=== PATIENT | male | born 1985 | race Caucasian/White ===

== ENCOUNTER 2024-01-20 22:29 | Emergency (ER) | payer SELFPAY ==
[2024-01-20 22:31] VITALS: BP 137/73
[2024-01-20 22:34] VITALS: BP 137/73; BMI 25.7
[2024-01-20 22:38] LABS: Glucose - Point of Care 147 mg/dl (70-99)
[2024-01-20] MEDS: ZOFRAN 4 MG IV (22:43)
--- NOTE | 2024-01-20 22:52 | ED.GENMED ---
History of Present Illness
<ROBERTO Bains - Last Filed: 01/21/24 04:18>
General
Chief Complaint: Abdominal Symptoms
Source: patient and significant other
Exam Limitations: altered mental status
Time Seen by Provider: 01/20/24 22:30
Nursing documentation reviewed up to this point in time: agreed with
History of Present Illness
History of Present Illness:
Pt is a 38 y/o M who presents via EMS and is in and out of consciousness. History is obtained from pt and girlfriend. The pt presents with RUQ pain, nausea, and vomiting x2 hours. His girlfriend states that the pt was doing well prior to dinner and
had a sudden onset of symptoms after eating Chik[place]ariela[place]a and a 'few' beers for dinner at 2130. The pt presented diaphoretic and with altered mental status. There is associated SOB and intermittent chills. His girlfriend noted that the pt complained of
chest pain and reflux sensation for the past few days. Denies fever, hemoptysis, drug use, LOC. The pt reported that he has construction going on in his house.
Past History
<ROBERTO Bains - Last Filed: 01/21/24 04:18>
Past History
ED Past Medical History: None
ED Past Surgical History: None
Social History
Tobacco: Non-smoker
Alcohol: Occasional
Drug: None
Review of Systems
<ROBERTO Bains - Last Filed: 01/21/24 04:18>
Review of Systems
Constitutional: Reports fatigue and chills
EENT: Reports no symptoms
Respiratory: Reports trouble breathing
Cardiac: Reports chest pain and diaphoresis
ABD/GI: Reports abdominal pain (RUQ), nausea and vomiting
: Reports no symptoms
Musculoskeletal: Reports no symptoms
Skin: Reports no symptoms
Neurological: Reports weakness
Endocrine: Reports no symptoms
Hematologic/Lymphatic: Reports no symptoms
Psychiatric: Reports no symptoms
Phy Exam
<ROBERTO Bains - Last Filed: 01/21/24 04:18>
General Physical Exam
General Presentation: moderate distress
General age: appears stated age
General Skin: diaphoretic
General Habitus: normal
General Mental: confused
General Hydration: appears well hydrated
ENT Exam
ENT Exam: EOMI and neck supple
Eye Exam
Eye Exam: cornea clear and conjunctiva normal
Cardiovascular Exam
Cardiovascular Exam: normal peripheral pulses and tachycardia
Pulmonary Exam
Pulmonary Exam: lungs clear, chest non tender and decreased breath sounds
Oxygen Status: oxygen 4 liters via NC
Gastrointestinal Exam
Gastrointestinal Exam: soft, non distended and abnormal bowel sounds
Palpation: left upper quadrant: No tenderness, left lower quadrant: No tenderness, right upper quadrant: Severe tenderness (Positive Mcgrath's sign) and right lower quadrant: No tenderness
Neurological Exam
Neurological Exam: confused
Musculoskeletal Exam
Musculoskeletal Exam: neuro vasc intact
Skin Exam
Skin Exam: diaphoresis
Psychiatric Exam
Psychiatric Exam: labile
Course
<ROBERTO Bains - Last Filed: 01/21/24 04:18>
Orders/Labs/Results
Orders:
Orders
01/20/24 22:30
Electrocardiogram (*1) Stat
Reason for Study: Other
Other Reason for Exam: overdose
Bedside Glucose- Treatment ONCE
Cardiac Monitoring- Treatment ONCE
EKG- Treatment ONCE
0.9% Sodium Chloride 1000 ml [Nss] 1,000 ml IV BOLUS
01/20/24 22:35
Acetaminophen Urgent
Alcohol Urgent
B-Hydroxybutyrate Urgent
COVID-19 Antigen Urgent
Source: Nasal Swab
Complete Blood Count/With Diff Urgent
Comprehensive Metabolic Panel Urgent
Lipase Urgent
Comment: ADD ON
PTT Urgent
Procalcitonin Urgent
PCT Algorithmm Indication: Sepsis
Prothrombin Time Urgent
Salicylate Urgent
Influenza A+B Rapid Molecular Urgent
KATIA Source: Nasal Swab
Specimen Description:
01/20/24 22:43
Ondansetron Injectable [Zofran] 4 mg IV NOW STA
01/20/24 22:51
Carboxyhemoglobin Urgent
Fentanyl, Urine Urgent
Urinalysis Reflex To Culture Urgent
Date Specimen was Collected: 01/20/24
Time Specimen was Collected: 22:49
Urine Drug Abuse Screen Urgent
Date Specimen was Collected: 01/20/24
Time Specimen was Collected: 22:49
01/20/24 23:15
Add On- LAB Urgent
Tests Added?: Lipase
01/20/24 23:16
US Abdomen Complete/Upper Urgent
Comment:
Reason For Exam: abdominal pain
01/20/24 23:30
CR Chest Portable - 1 View Urgent
Comment:
Reason For Exam: dyspnea
Reason Study Needs to be Portable: Unable to Transport
01/20/24 23:32
Add On- LAB Urgent
Tests Added?: urine fentanyl
01/21/24 00:58
Troponin I Urgent
01/21/24 01:17
CT Chest Pe Study Urgent
Comment:
Reason For Exam: Dyspnea and right-sided chest wall pain
01/21/24 01:23
Electrocardiogram (*1) Urgent
Reason for Study: Chest Pain
EKG- Treatment ONCE
Abnormal Lab Results
01/20/24 01/20/24
22:35 22:36
WBC 15.6 H 10^3/uL
(4.8-10.8)
MCH 31.7 H pg
(27.0-31.0)
MCHC 37.1 H g/dL
(33.0-37.0)
MPV 10.6 H fL
(7.4-10.4)
Abs Immat Gran (auto) 0.2 H 10^3/uL
(0-0.05)
Absolute Neuts (auto) 9.4 H 10^3/uL
(1.4-6.5)
Absolute Lymphs (auto) 4.6 H 10^3/uL
(1.2-3.4)
Absolute Monos (auto) 1.0 H 10^3/uL
(0.1-0.6)
Immature Gran % 1.5 H %
(0-0.5)
APTT 21.7 L Sec
(23.4-35.0)
Carbon Dioxide 18 L mmol/L
(22-30)
Glucose 155 H mg/dl
(70-99)
Albumin 5.1 H g/dl
(3.5-5.0)
Salicylates < 1.0 L mg/dl
(2.0-20.0)
Acetaminophen < 10 L ug/ml
(10-30)
POC Glucose 147 H mg/dl
(70-99)
01/20/24 22:35
01/20/24 22:35
Vital Signs
Initial and Last Documented VS:
Initial Vital Signs
Pulse Resp BP
131 26 137/73
01/20/24 22:31 01/20/24 22:31 01/20/24 22:31
Last Documented Vital Signs
Temp Pulse Resp BP Pulse Ox
97.8 F 108 24 113/62 95
01/20/24 22:34 01/21/24 01:48 01/21/24 01:48 01/21/24 04:00 01/21/24 04:00
<Blair Moyer DO - Last Filed: 01/21/24 02:52>
Orders/Labs/Results
Orders:
Orders
01/20/24 22:30
Electrocardiogram (*1) Stat
Reason for Study: Other
Other Reason for Exam: overdose
Bedside Glucose- Treatment ONCE
Cardiac Monitoring- Treatment ONCE
EKG- Treatment ONCE
0.9% Sodium Chloride 1000 ml [Nss] 1,000 ml IV BOLUS
01/20/24 22:35
Acetaminophen Urgent
Alcohol Urgent
B-Hydroxybutyrate Urgent
COVID-19 Antigen Urgent
Source: Nasal Swab
Complete Blood Count/With Diff Urgent
Comprehensive Metabolic Panel Urgent
Lipase Urgent
Comment: ADD ON
PTT Urgent
Procalcitonin Urgent
PCT Algorithmm Indication: Sepsis
Prothrombin Time Urgent
Salicylate Urgent
Influenza A+B Rapid Molecular Urgent
KATIA Source: Nasal Swab
Specimen Description:
01/20/24 22:43
Ondansetron Injectable [Zofran] 4 mg IV NOW STA
01/20/24 22:51
Carboxyhemoglobin Urgent
Fentanyl, Urine Urgent
Urinalysis Reflex To Culture Urgent
Date Specimen was Collected: 01/20/24
Time Specimen was Collected: 22:49
Urine Drug Abuse Screen Urgent
Date Specimen was Collected: 01/20/24
Time Specimen was Collected: 22:49
01/20/24 23:15
Add On- LAB Urgent
Tests Added?: Lipase
01/20/24 23:16
US Abdomen Complete/Upper Urgent
Comment:
Reason For Exam: abdominal pain
01/20/24 23:30
CR Chest Portable - 1 View Urgent
Comment:
Reason For Exam: dyspnea
Reason Study Needs to be Portable: Unable to Transport
01/20/24 23:32
Add On- LAB Urgent
Tests Added?: urine fentanyl
01/21/24 00:58
Troponin I Urgent
01/21/24 01:17
CT Chest Pe Study Urgent
Comment:
Reason For Exam: Dyspnea and right-sided chest wall pain
01/21/24 01:23
Electrocardiogram (*1) Urgent
Reason for Study: Chest Pain
EKG- Treatment ONCE
Abnormal Lab Results
01/20/24 01/20/24
22:35 22:36
WBC 15.6 H 10^3/uL
(4.8-10.8)
MCH 31.7 H pg
(27.0-31.0)
MCHC 37.1 H g/dL
(33.0-37.0)
MPV 10.6 H fL
(7.4-10.4)
Abs Immat Gran (auto) 0.2 H 10^3/uL
(0-0.05)
Absolute Neuts (auto) 9.4 H 10^3/uL
(1.4-6.5)
Absolute Lymphs (auto) 4.6 H 10^3/uL
(1.2-3.4)
Absolute Monos (auto) 1.0 H 10^3/uL
(0.1-0.6)
Immature Gran % 1.5 H %
(0-0.5)
APTT 21.7 L Sec
(23.4-35.0)
Carbon Dioxide 18 L mmol/L
(22-30)
Glucose 155 H mg/dl
(70-99)
Albumin 5.1 H g/dl
(3.5-5.0)
Salicylates < 1.0 L mg/dl
(2.0-20.0)
Acetaminophen < 10 L ug/ml
(10-30)
POC Glucose 147 H mg/dl
(70-99)
01/20/24 22:35
01/20/24 22:35
Vital Signs
Initial and Last Documented VS:
Initial Vital Signs
Pulse Resp BP
131 26 137/73
01/20/24 22:31 01/20/24 22:31 01/20/24 22:31
Last Documented Vital Signs
Temp Pulse Resp BP Pulse Ox
97.8 F 108 24 113/62 95
01/20/24 22:34 01/21/24 01:48 01/21/24 01:48 01/21/24 04:00 01/21/24 04:00
<ROBERTO Bains - Last Filed: 01/21/24 04:18>
MDM/Problems Addressed
Differential Diagnosis Includes:
Cholecystitis
Choledocholithiasis
Acute pancreatitis
Acute cholangitis
<ROBERTO Bains - Last Filed: 01/21/24 04:18>
*Critical Care Note
Total Time (30-74mins, 75-104mins- exclusive of procedures): Not Applicable
<ROBERTO Bains - Last Filed: 01/21/24 04:18>
Update Note
Update Note:
Ultrasound abdomen
IMPRESSION:
Normal gallbladder. No sludge or gallstones. Negative Mcgrath sign.
No biliary ductal dilatation.
Visualized liver, pancreas, spleen and bilateral kidneys without gross abnormality.
No free fluid.
CT chest with IV contrast, angiogram
IMPRESSION:
Motion artifact limits evaluation of scattered mid distal segmental and subsegmental pulmonary arteries especially in the upper lungs. Cannot definitively exclude PE at those levels. No central, lobar, or gross proximal segmental PE.
No aortic dissection.
Posterior dependent atelectasis bilaterally. Bandlike atelectasis right lower lobe superiorly. No lung consolidation, pneumothorax or pleural effusion.
Very small hiatal hernia with mild distal esophageal wall thickening
01/21/2024, 0355: Pt reported that he feels better and he only complains of abdominal cramping. Otherwise, skin color and breathing are normal. There are no other complaints.
01/21/2024, 0417: Pt was able to tolerate water intake and eating saltine crackers.
<Blair Moyer DO - Last Filed: 01/21/24 02:52>
Update Note
Update Note:
Ultrasound abdomen
IMPRESSION:
Normal gallbladder. No sludge or gallstones. Negative Mcgrath sign.
No biliary ductal dilatation.
Visualized liver, pancreas, spleen and bilateral kidneys without gross abnormality.
No free fluid.
CT chest with IV contrast, angiogram
IMPRESSION:
Motion artifact limits evaluation of scattered mid distal segmental and subsegmental pulmonary arteries especially in the upper lungs. Cannot definitively exclude PE at those levels. No central, lobar, or gross proximal segmental PE.
No aortic dissection.
Posterior dependent atelectasis bilaterally. Bandlike atelectasis right lower lobe superiorly. No lung consolidation, pneumothorax or pleural effusion.
Very small hiatal hernia with mild distal esophageal wall thickening
ED Attending Note
<ROBERTO Bains - Last Filed: 01/21/24 04:18>
-
Portions of this chart may have been created with voice recognition software.� Occasional wrong word or��sound alike� substitutions may have occurred due to the inherent limitations of voice recognition software.
<Blair Moyer DO - Last Filed: 01/21/24 02:52>
ED Attending Note
Patient seen and examined by attending physician: Yes
I performed the substantive portion of visit, reviewed & personally made and approve the management plan that is documented in note by myself or OLVIN.: Yes
ED Attending Note:
Pleasant 38-year-old male brought in by EMS with altered mental status, pallor, and vomiting. Patient admits to not feeling well for the last few days. He was out with friends and significant other. He states he had 2 alcoholic beverages. He
denies any drug use. He is not diabetic. Denies recent fevers. He was not nauseated or vomiting earlier today. He states that he has right-sided chest wall pain. He does report some shortness of breath. Patient has been having some chest pain
intermittently for the last few days. No one else is sick at home. He does have construction going on in their home.Patient was seen in conjunction with the PA student. I have reviewed and agree with the history and treatment plan presented. On
my independent physical exam, patient is awake, alert, and oriented x3
Carbon monoxide was tested with the bedside meter and registered as normal.
Blood glucose was also checked immediately and was normal.
Patient has no signs of outward trauma.
Vital signs are stable. Patient not hypoxic
Nursing note reviewed. I agree with nursing documentation up to this point in time.
Home Meds and allergies reviewed.
NUMBER AND COMPLEXITY OF PROBLEMS ADDRESSED AT THE ENCOUNTER
� Chronic conditions affecting care: No past medical history.
� Acute Exacerbation and/or Progression of Chronic Illness: None
� Differential Diagnosis includes: Alcohol intoxication, gallbladder issues, pulmonary embolus, pneumonia, viral syndrome
AMOUNT AND/OR COMPLEXITY OF DATA TO BE REVIEWED AND ANALYZED
I performed an independent evaluation of the following and my interpretation is:
EKG:
CT:
X-rays:
Ultrasound:abdomen
IMPRESSION:
Normal gallbladder. No sludge or gallstones. Negative Mcgrath sign.
No biliary ductal dilatation.
Visualized liver, pancreas, spleen and bilateral kidneys without gross abnormality.
No free fluid.
Laboratory Studies: 15.6 white blood cell count, lipase is 123, glucose is 155, transaminases are normal, BUN and creatinine are normal, urinalysis and UDS are normal, beta hydroxybutyrate is normal
Other:
Review of other/old records:
Clinical information was obtained by an independent historian:
Prescriptions/Medications Considered but not given:
Further testing considered but not performed:
RISK OF COMPLICATIONS AND/OR MORBIDITY OR MORTALITY OF PATIENT MANAGEMENT
Social determinants of health affecting care: Good Social Support
Discussion with other providers:
Escalation of care including admission/observation vs risk of discharge considered:
CRITICAL CARE NOTE:
Total Time (exclusive of procedures):
Update:
Discharge Plan
Departure
Patient Disposition: Home (Routine Discharge)
Date of Disposition: 01/21/24
Time of Disposition: 04:08
Patient with high blood pressure during this ER visit?: Yes
Condition: Good
Discharge Problem:
Nausea & vomiting, Acute alteration in mental status, Alcohol intoxication
Instructions: [place] Diet, Nausea and Vomiting, Adult (DC)
Prescriptions:
No Action
No Current Medications
0
Referrals:
[facility] [Outside]
[facility] [Outside]
NONE,* [Family Provider] -
Activity Restrictions/Additional Instructions:
It was a pleasure meeting you and taking part in your care. We hope for your continued healing and wellness.
Please read discharge instructions in their entirety. However, they are for general education and may not describe your exact diagnosis at discharge. Information on your ER visit and medical conditions were discussed with you along with appropriate
follow up information...
If indicated, please take your medications as instructed and indicated on discharge paperwork.
Please schedule a follow up appointment as directed. Call to schedule an appointment
Please return to the emergency department with ANY change in, persisting, or worsening of symptoms. If any of your symptoms do not improve, or persist, or become more severe within 6-12 hours, please return to the emergency department for further
care.
Please return to the emergency department if you develop a headache, neck pain/stiffness, fever greater than 100.4F, chest pain, shortness of breath, persistent nausea, vomiting, slurred speech, difficulty walking, numbness/tingling, weakness, signs
of infection or any other symptoms that are worrisome to you.
If you have any questions or concerns please do not hesitate to call the Hospital at or E-mail me directly at [email or web address]
Interventions
Interventions:
*Risk Screen - Suicide Last Done: 01/20/24 22:34
*General Assessment Last Done: 01/20/24 22:34
*Neglect/Abuse Screening Last Done: 01/20/24 22:34
ED- Fall Risk Assessment Last Done: 01/20/24 23:07
*ED COVID-19 Vaccine History Last Done: 01/20/24 22:34
TW-Eufnyh-Viscopxquq Assessment Last Done: 01/20/24 23:07
Discharge Date and Time
Print Language: TURKMEN
[2024-01-20] MEDS: NSS 1000 IV (22:53)
[2024-01-20 22:57] LABS: APTT 21.7 Sec (23.4-35.0); INR 1.03; PT 13.3 Sec (11.4-14.6)
[2024-01-20 22:57] LABS: Carboxyhemoglobin 2.2 %
[2024-01-20 23:00] VITALS: BP 116/63
[2024-01-20 23:00] LABS: Urine Albumin Negative (Neg - Trace); Urine Bilirubin Negative (Negative); Urine Character Clear (Clear); Urine Color Yellow; Urine Glucose Negative (Negative); Urine Ketone Negative (Negative); Urine Leukocyte Negative (Negative); Urine Nitrite Negative (Negative); Urine Occult Blood Negative (Negative); Urine Specific Gravity 1.015 (<1.030); Urine Urobilinogen Negative (Neg - 1+)
[2024-01-20 23:01] LABS: ALT (SGPT) 19 U/L (0-50); AST (SGOT) 22 U/L (17-59); Acetaminophen < 10 ug/ml (10-30); Albumin 5.1 g/dl (3.5-5.0); Alcohol 139 mg/dl; Alkaline Phosphatase 47 U/L (38-126); Blood Urea Nitrogen 19 mg/dl (9-20); COVID-19 Antigen Negative (Negative); Calcium 9.7 mg/dl (8.4-10.2); Carbon Dioxide 18 mmol/L (22-30); Chloride 105 mmol/L (98-107); Estimated Creatinine Clearance 75 ml/min; Glucose 155 mg/dl (70-99); Potassium 3.6 mmol/L (3.5-5.1); Salicylate < 1.0 mg/dl (2.0-20.0); Sodium 141 mmol/L (135-145); Total Bilirubin 0.5 mg/dl (0.2-1.3); Total Protein 7.2 g/dl (6.3-8.2); eGFR > 60.00
[2024-01-20 23:07] LABS: B-Hydroxybutyrate 0.17 mmol/L (0.02-0.27)
[2024-01-20 23:15] LABS: Procalcitonin < 0.05 ng/ml (0.0-0.25)
[2024-01-20 23:21] LABS: Amphetamines Negative (Negative); Barbiturates Negative (Negative); Benzodiazepines Negative (Negative); Buprenorphine Negative (Negative); Cocaine Negative (Negative); Marijuana Negative (Negative); Methadone Negative (Negative); Methamphetamines Negative (Negative); Opiates Negative (Negative); Phencyclidine Negative (Negative); Tricyclic Antidepressants Negative (Negative)
[2024-01-20 23:26] LABS: % Basophils 0.8 % (0-2); % Eosinophils 1.7 % (0-6); % Immature Granulocytes 1.5 % (0-0.5); % Lymphocytes 29.4 % (20.5-51.1); % Monocytes 6.5 % (1.7-9.3); % Neutrophils 60.1 % (42.2-75.2); Absolute Basophils 0.1 10^3/uL (0-0.2); Absolute Eosinophils 0.3 10^3/uL (0-0.7); Absolute Immature Granulocytes 0.2 10^3/uL (0-0.05); Absolute Lymphocytes 4.6 10^3/uL (1.2-3.4); Absolute Neutrophils 9.4 10^3/uL (1.4-6.5); Hematocrit 42.6 % (39.0-52.0); Hemoglobin 15.8 g/dL (13.0-18.0); Mean Corp Hgb Conc. 37.1 g/dL (33.0-37.0); Mean Corpuscular Hgb 31.7 pg (27.0-31.0); Mean Corpuscular Volume 85.5 fL (80.0-94.0); Mean Platelet Volume 10.6 fL (7.4-10.4); Nucleated Red Blood Cells % 0 % (-); Platelet Count 280 10^3/uL (130-400); Red Blood Cell Count 4.98 10^6/uL (4.70-6.10); Red Cell Dist. Width 12.5 % (11.5-14.5); White Blood Cell Count 15.6 10^3/uL (4.8-10.8)
[2024-01-20 23:34] LABS: Lipase 132 U/L (23-300)
[2024-01-20 23:56] LABS: Fentanyl, Urine Negative (Negative)
[2024-01-21] VITALS (7 sets, daily range): BP systolic 97–116; BP diastolic 46–68
--- NOTE | 2024-01-21 01:00 | EDRN ---
Patient appears well and much better, awake and talking with girlfriend, VSS, will continue to monitor, updated them on labs
[2024-01-21 01:32] LABS: Troponin I 0.012 ng/ml
--- NOTE | 2024-01-21 02:55 | EDRN ---
Patient provided with drink of water and ice chips, he is aware we are waiting on CT results
== END 2024-01-21 04:35 | disposition home or self-care (01) ==
LOC: EMR 22:29
PROVIDERS: EMERGENCY PHYSICIAN Student in an Organized Health Care Education/Training Program
DX: R11.2 Nausea with vomiting, unspecified (principal); R41.82 Altered mental status, unspecified; F10.129 Alcohol abuse with intoxication, unspecified
CPT/HCPCS: 99284; 96374; 96361; 71045; 71275; 76700; 80053; 80143; 80179; 80306; 80307; 81003; 82010; 82077; 82375; 82962; 83690; 84145; 84484; 85025; 85610; 85730; 87502; 87811; 93005; Q9967